=== PATIENT | male | born 1990 | race Caucasian/White ===

== ENCOUNTER 2017-05-13 20:10 | Emergency (ER) | payer SELFPAY ==
[2017-05-13 20:19] VITALS: BP 127/82
[2017-05-13] MEDS ORDERED: Tetan/Diph/Pertus SYR(Tdap)* 0.5 ML SYR(BOOSTRIX) use SYR IM ONE (20:20)
[2017-05-13] MEDS ORDERED: Lidocaine 2% PF * 5 ML VIAL INJ ONE (20:25)
[2017-05-13] MEDS ORDERED: Lidocaine 2% W/EPI 1:100,000* 20 ML MDV INJ ONE (20:26)
--- NOTE | 2017-05-13 21:20 | UC ---
Laceration HPI - HPI Summary HPI Summary: PUNCHED RIGHT ARM THROUGH WINDOW. SMALL BIT OF GLASS IN RIGHT HAND (THENAR EMINENCE) . LARGE LACERATION RIGHT ARM, LAST TETANUS AGE 13Y/O. - History Of Current Complaint Chief Complaint: UCLaceration Stated Complaint: LACERATION Time Seen by Provider: 05/13/17 20:13 Hx Obtained From: Patient, Family/Dopster Laceration Location: Hand Mechanism Of Injury: Sharp Trauma Onset/Duration: Sudden Onset, Lasting Minutes, Still Present Severity: Moderate Aggravating Factors: Nothing Related History: Dominant Hand Right - Allergies/Home Medications Allergies/Adverse Reactions: Allergies Allergy/AdvReac Type Severity Reaction Status Date / Time No Known Allergies Allergy Verified 05/13/17 20:19 PMH/Surg Hx/FS Hx/Imm Hx Previously Healthy: Yes - Surgical History Surgical History: Yes Surgery Procedure, Year, and Place: tonsillectomy - Family History Known Family History: Negative: Blood Disorder - Social History Occupation: Employed Full-time Lives: With Family Alcohol Use: Occasionally Substance Use Type: Marijuana Substance Use Comment - Amount & Last Used: weekend usage Smoking Status (MU): Heavy Every Day Tobacco Smoker Type: Cigarettes Amount Used/How Often: 1ppd Length of Time of Smoking/Using Tobacco: 6 yrs Have You Smoked in the Last Year: Yes Cessation Counseling: Patient Advised to Stop - Immunization History Most Recent Tetanus Shot: unknown Review of Systems Constitutional: Negative Skin: Other - LACERATION RIGHT HAND, RIGHT BICEPS Eyes: Negative ENT: Negative Respiratory: Negative Cardiovascular: Negative Gastrointestinal: Negative Genitourinary: Negative Motor: Negative Neurovascular: Negative Musculoskeletal: Negative Neurological: Negative Psychological: Negative Is Patient Immunocompromised?: No All Other Systems Reviewed And Are Negative: Yes Physical Exam Triage Information Reviewed: Yes Appearance: Well-Appearing, No Pain Distress, Well-Nourished Vital Signs: Initial Vital Signs Temp 97.6 F 05/13/17 20:13 Pulse 90 05/13/17 20:13 Resp 16 05/13/17 20:13 BP 127/82 05/13/17 20:13 Pulse Ox 100 05/13/17 20:13 Vital Signs Reviewed: Yes Eye Exam: Normal ENT Exam: Normal ENT: Positive: Normal ENT inspection, Hearing grossly normal, Pharynx normal, TMs normal Dental Exam: Normal Neck exam: Normal Neck: Positive: Supple, Nontender, No Lymphadenopathy Respiratory Exam: Normal Respiratory: Positive: Chest non-tender, Lungs clear, Normal breath sounds, No respiratory distress, No accessory muscle use Cardiovascular Exam: Normal Cardiovascular: Positive: RRR, No Murmur, Pulses Normal Abdominal Exam: Normal Musculoskeletal Exam: Normal Musculoskeletal: Positive: Strength Intact, ROM Intact Neurological Exam: Normal Psychological Exam: Normal Skin: Positive: Other - LACERATION RIGHT BICEPS, RIGHT HAND Laceration Repair - Laceration Repair 1 Description: Linear - RIGHT BICEPS Laceration Size After Repair: Length (cm) - 6, Width (mm) - 15, Depth (mm) - 7 Type Injection: Local Anesthesia Used: 2.0% Lido Additive Used (in ml): Epi Cleansing Completed Via Routine Prep: Yes Irrigation With Pressure Irrigation Device: Yes Closure Material: Sutures - 5 X4-0 PROLENE Closure Method: Single Layer Suture Of: Skin, SQ Suture Type: Prolene 2 Description: Irregular - RIGHT THENAR EMINENCE Laceration Size After Repair: Length (cm) - 1, Width (mm) - 2, Depth (mm) - 1 Modified For Repair: Yes - SMALL 2mm X 2mm SHARD OF GLASS REMOVED FROM SITE Type Injection: Local Anesthesia Used: 2.0% Lido Cleansing Completed Via Routine Prep: Yes Irrigation With Pressure Irrigation Device: Yes Suture Type: Other - NO SUTURE; FB REMOVAL ONLY Laceration Course/Dx - Differential Dx - Laceration/Wound Differental Diagnoses: Cellulitis, Foreign Body, Joint Infection, Laceration, Tendon Laceration Provider Diagnoses: LACERATION RIGHT ARM WITH REPAIR; LACERATION AND FOREIGN BODY REMOVAL OF RIGHT THENAR EMINENCE Discharge - Discharge Plan Condition: Stable Disposition: HOME Patient Education Materials: Care For Your Stitches (ED), Laceration (ED), Skin Avulsion (ED), Laceration Without Closure (ED) Forms: *Work Release Referrals: [facility] [place] [Outside] No Primary Care Phys,NOPCP [Primary Care Provider] - Additional Instructions: PRIMARY CARE: There are four major types of clinical preventive care: immunizations, screening , behavioral counseling (sometimes referred to as lifestyle changes), and chemoprevention. All four apply throughout the life span. It is important to establish and to have access to a Primary Care Physician, not only for follow- up regarding acute and chronic problems, but also for preventative care. RETURN IN TEN DAYS TO HAVE YOUR SUTURES REMOVED Images Front/Back of Body, Lg ([place]): 1 - 6 CM LACERATION HERE 2 - FB REMOVAL RIGHT THENAR
== END 2017-05-13 21:23 | disposition home or self-care (01) ==
LOC: UCCORT 20:10
DX: S46.221A Laceration of muscle, fascia and tendon of other parts of biceps, right arm, initial encounter (principal); W18.02XA Striking against glass with subsequent fall, initial encounter; Y92.9 Unspecified place or not applicable; S61.421A Laceration with foreign body of right hand, initial encounter; Z23 Encounter for immunization; F17.210 Nicotine dependence, cigarettes, uncomplicated
CPT/HCPCS: 12002; 90471; 90715; 99202; G0463